=== PATIENT | male | born 1975 | race African-American/Black ===

== ENCOUNTER 2022-05-04 10:08 | Emergency (ER) | payer BC, SELFPAY ==
[2022-05-04 10:09] VITALS: BP 152/95; PULSE 71; RESP 14; TEMP 36.7; O2SAT 98
--- NOTE | 2022-05-04 11:08 | ED_ITS ---
HPI - Back Pain/Injury General Chief Complaint: Back Pain/Injury Stated Complaint: Upper back pain Time Seen by Provider: 05/04/22 10:37 History of Present Illness HPI Narrative: 46-year-old male no medical problems presents to the emergency room for evaluation of midthoracic back pain. Patient states he was lifting weights yesterday and felt the pain to the left side of his back below his shoulder blade. States the pain is worse with certain movements. 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 Denies any other known injury or trauma. States has been taking her milligrams of ibuprofen with some relief of pain. Review of Systems Review of Systems: CONSTITUTIONAL: Denies fever, chills, or sweats. EYES: Denies visual changes, redness, or discharge. ENT: Denies rhinorrhea, congestion, sore throat, or otalgia. CARDIOVASCULAR: Denies chest pain, palpitations, or edema. RESPIRATORY: Denies cough or dyspnea. GASTROINTESTINAL: Denies abdominal pain, nausea, vomiting, or diarrhea. GENITOURINARY: Denies dysuria or hematuria. SKIN: Denies rash or itching. MUSCULOSKELETAL: Reports midthoracic back pain NEUROLOGIC: Denies headache, numbness, dizziness, or weakness. PSYCHIATRIC: Denies anxiety or depression. Exam Narrative: GENERAL: Well-appearing, well-nourished, no physical limitations, and in no acute distress. HEAD: Normocephalic, atraumatic. EYES: Conjunctivae normal, PERRLA and EOMI. CHEST: Clear to auscultation. No respiratory distress. No wheezes rales or rhonchi. HEART: Regular rate and rhythm. No murmur heard. Normal peripheral pulses. BACK: No midline thoracic tenderness, step-offs, bony abnormality; FROM. Tenderness to the left latissimus dorsi muscle EXTREMITIES: Normal range of motion. No edema. No clubbing or cyanosis SKIN: Warm, dry, no rash. No noted wounds NEURO: No focal deficits. Alert and oriented x3. MAEW. CN's II-XI intact bilaterally, normal gait PSYCH: Cooperative. Normal mood and affect. Course Vital Signs Vital signs: Vital Signs Temperature 36.7 C 05/04/22 10:09 Pulse Rate 71 05/04/22 10:09 Respiratory Rate 14 05/04/22 10:09 Blood Pressure 152/95 H 12/15/22 10:09 Pulse Oximetry 98 05/04/22 10:09 Oxygen Delivery Room Air 05/04/22 10:09 Temperature 36.7 C 05/04/22 10:09 Pulse Rate 71 05/04/22 10:09 Respiratory Rate 14 05/04/22 10:09 Blood Pressure 152/95 H 05/04/22 10:09 Pulse Oximetry 98 05/04/22 10:09 Oxygen Delivery Room Air 05/04/22 10:09 Discharge Plan Discharge Clinical Impression: Strain of thoracic back region Patient Disposition: Home, Self-Care Condition: Stable Instructions: Antibiotic Form, Thoracic Back Strain (ED) Additional Instructions: Resume taking ibuprofen 3 times daily. Prescriptions: New methocarbamol 750 mg tablet 750 mg PO TID 7 Days Qty: 21 0RF Follow-up/Referrals: PHYSICIAN,MERCHANDISING MANAGER [Primary Care Provider] - Stand Alone Forms: Work/School Release IP Time of Disposition: 11:11
== END 2022-05-04 11:45 | disposition home or self-care (01) ==
PROVIDERS: Emergency Provider Nurse Practitioner Family
DX: S29.012A Strain of muscle and tendon of back wall of thorax, initial encounter (principal); X50.0XXA Overexertion from strenuous movement or load, initial encounter; Y93.B3 Activity, free weights
CPT/HCPCS: 99283